=== PATIENT | female | born 1985 | race Caucasian/White ===

== ENCOUNTER 2016-07-30 16:12 | Emergency (ER) | payer SELFPAY ==
[~2016-07-30] VITALS: Ht 170.2 cm; Wt 63.5 kg
[2016-07-30] MEDS ORDERED: fentaNYL INJECTION 100 MCG/2 ML AMP IVP STA (16:30)
[2016-07-30] MEDS ORDERED: KETOROLAC 30 MG/ML VIAL IVP STA (16:30)
[2016-07-30] MEDS ORDERED: NS IV 1000 ML 1,000 ML IV ONE (16:30)
--- NOTE | 2016-07-30 16:36 | ED Abdominal Pain ---
General Chief Complaint: Abdominal/GI Problems Stated Complaint: ABD PAIN Source of Information: Patient Exam Limitations: No Limitations (NAZIA STANLEY MD) History of Present Illness Time Seen By Provider: 16:25 Initial Comments Here with complaint of right lower quadrant abdominal pain since yesterday. Does have history of polycystic ovarian syndrome. She states that she's not had pain like this before. Does admit to having lower abdominal pain and multiple CTs previously. Denies dysuria, vaginal discharge or diarrhea. Denies fever or chills currently. She is visiting here from [facility] and plans on being here for about a week visiting her sister. Timing/Duration: 1-2 Days Severity/Quality: Moderate, Aching, Sharp Location: RLQ Radiation: No Radiation Activities at Onset: None Modifying Factors: Worsens With Movement Associated Symptoms: No Back Pain, No Fever/Chills, No Nausea/Vomiting, No Weakness (NAZIA STANLEY MD) Allergies and Home Medications Allergies Coded Allergies: ceftriaxone (Verified Allergy, Unknown, RASH, 07/30/16) clindamycin (Verified Allergy, Unknown, 07/30/16) codeine (Verified Allergy, Unknown, 07/30/16) promethazine (Verified Allergy, Unknown, 07/30/16) Home Medications No Active Prescriptions or Reported Meds Review of Systems Constitutional: see HPINo chills, No fever EENTM: No Symptoms Reported Respiratory: No Symptoms ReportedDenies Cough, Denies Shortness of Air Cardiovascular: No Symptoms ReportedDenies Chest Pain Gastrointestinal: See HPI Abdominal PainDenies Diarrhea, Denies Nausea, Denies Vomiting Genitourinary: No Symptoms Reported Musculoskeletal: no symptoms reported Skin: no symptoms reported Psychiatric/Neurological: No Symptoms Reported (NAZIA STANLEY MD) All Other Systems Reviewed Negative Unless Noted: Yes (NAZIA STANLEY MD) Past Socdkdz-Xbjfxa-Naatuo Hx Patient Social History Alcohol Use: Occasionally Uses Recreational Drug Use: No Smoking Status: Current Everyday Smoker (she spoke with nephrectomy. Port applied and removed.) Recent Foreign Travel: No Contact w/Someone Who Travel: No (NAZIA STANLEY MD) Surgeries HX Surgeries: Yes (left nephrectomy) (NAZIA STANLEY MD) Respiratory Hx Respiratory Disorders: Yes Respiratory Disorders: Asthma (NAZIA STANLEY MD) Cardiovascular Hx Cardiac Disorders: No (NAZIA STANLEY MD) Neurological Hx Neurological Disorders: No (she spoke) (NAZIA STANLEY MD) Genitourinary Hx Genitourinary Disorders: Yes (Wilms tumor) (NAZIA STANLEY MD) Gastrointestinal Hx Gastrointestinal Disorders: No (NAZIA STANLEY MD) Musculoskeletal Hx Musculoskeletal Disorders: No (NAZIA STANLEY MD) Endocrine Hx Endocrine Disorders: No (NAZIA STANLEY MD) Cancer Hx Cancer: Yes Cancer: Kidney (Wilms tumor) (NAZIA STANLEY MD) Psychosocial Hx Psychiatric Problems: No (NAZIA STANLEY MD) Reviewed Nursing Assessment Reviewed/Agree w Nursing PMH: Yes (NAZIA STANLEY MD) Family Medical History Significant Family History: No Pertinent Family Hx (NAZIA STANLEY MD) Physical Exam Vital Signs VS - Last 72 Hours, by Label 07/30/16 07/30/16 07/30/16 07/30/16 16:22 17:03 17:08 17:37 Temp 99.2 99.2 99.2 99.2 Pulse 98 Resp 18 B/P 125/83 Pulse Ox 95 O2 Delivery Room Air 07/30/16 17:37 Temp 99.2 (HAJA SOLORZANO APRN) Vital Signs Capillary Refill : (NAZIA STANLEY MD) General Appearance: WD/WN no apparent distress HEENT: PERRL/EOMI pharynx normal Neck: full range of motion supple Respiratory: lungs clear normal breath sounds Cardiovascular: regular rate, rhythm no murmur Gastrointestinal: softNo guarding, No rebound, tenderness (right lower quadrant and suprapubic) Extremities: non-tender normal inspection Back: normal inspection no CVA tenderness no vertebral tenderness Neurologic/Psychiatric: alert oriented x 3 Skin: normal color warm/dry (NAZIA STANLEY MD) Progress/Results/Core Measures Results/Orders Lab Results Laboratory Tests Test 07/30/16 16:20 07/30/16 16:30 Range/Units Ur Tricyclic Antidepressants Screen NEGATIVE NEGATIVE Urine Amphetamines Screen NEGATIVE NEGATIVE Urine Bacteria FEW H /HPF Urine Barbiturates Screen NEGATIVE NEGATIVE Urine Benzodiazepines Screen NEGATIVE NEGATIVE Urine Bilirubin NEGATIVE NEGATIVE Urine Cannabinoids Screen NEGATIVE NEGATIVE Urine Casts NONE /LPF Urine Clarity CLEAR Urine Cocaine Screen NEGATIVE NEGATIVE Urine Color YELLOW Urine Crystals NONE /LPF Urine Culture Indicated YES Urine Glucose (UA) NEGATIVE NEGATIVE Urine Ketones NEGATIVE NEGATIVE Urine Leukocyte Esterase NEGATIVE NEGATIVE Urine Methadone Screen NEGATIVE NEGATIVE Urine Methamphetamines Screen NEGATIVE NEGATIVE Urine Mucus NEGATIVE /LPF Urine Nitrite POSITIVE H NEGATIVE Urine Opiates Screen NEGATIVE NEGATIVE Urine Oxycodone Screen NEGATIVE NEGATIVE Urine Phencyclidine Screen NEGATIVE NEGATIVE Urine Propoxyphene Screen NEGATIVE NEGATIVE Urine Protein NEGATIVE NEGATIVE Urine RBC NONE /HPF Urine RBC (Auto) NEGATIVE NEGATIVE Urine Specific [place] 1.015 L 1.016-1.022 Urine Squamous Epithelial Cells 10-25 H /HPF Urine Urobilinogen 1 NORMAL MG/DL Urine WBC RARE /HPF Urine pH 6.5 5-9 Alanine Aminotransferase (ALT/SGPT) 15 0-55 U/L Albumin 4.5 3.2-4.5 G/DL Alkaline Phosphatase 79 40-136 U/L Anion Gap 11 5-14 MMOL/L Aspartate Amino Transf (AST/SGOT) 19 5-34 U/L BUN/Creatinine Ratio 17 Basophils # (Auto) 0.1 0.0-0.1 10^3/uL Basophils (%) (Auto) 1 0-10 % Blood Urea Nitrogen 14 7-18 MG/DL C-Reactive Protein High Sensitivity 0.09 0.00-0.50 MG/DL Calcium Level 9.5 8.5-10.1 MG/DL Carbon Dioxide Level 22 21-32 MMOL/L Chloride Level 108 H 98-107 MMOL/L Creatinine 0.82 0.60-1.30 MG/DL Eosinophils # (Auto) 0.6 H 0.0-0.3 10^3/uL Eosinophils (%) (Auto) 5 0-10 % Estimat Glomerular Filtration Rate > 60 Glucose Level 98 70-105 MG/DL Hematocrit 41 35-52 % Hemoglobin 14.4 11.5-16.0 G/DL Lymphocytes # (Auto) 2.8 1.0-4.0 X 10^3 Lymphocytes (%) (Auto) 26 12-44 % Mean Corpuscular Hemoglobin 30 25-34 PG Mean Corpuscular Hemoglobin Concent 35 32-36 G/DL Mean Corpuscular Volume 86 80-99 FL Mean Platelet Volume 10.2 7.4-10.4 FL Monocytes # (Auto) 1.0 0.0-1.0 X 10^3 Monocytes (%) (Auto) 10 0-12 % Neutrophils # (Auto) 6.4 1.8-7.8 X 10^3 Neutrophils (%) (Auto) 59 42-75 % Platelet Count 353 130-400 10^3/uL Potassium Level 4.2 3.6-5.0 MMOL/L Red Blood Count 4.84 4.35-5.85 10^6/uL Red Cell Distribution Width 13.9 10.0-14.5 % Sodium Level 141 135-145 MMOL/L Total Bilirubin 0.3 0.1-1.0 MG/DL Total Protein 7.4 6.4-8.2 G/DL White Blood Count 10.8 4.3-11.0 10^3/uL (HAJA SOLORZANO APRN) Medications Given in ED Current Medications Medications Dose Ordered Sig/Ariel Route Start Time Stop Time Status Last Admin Dose Admin Iohexol 100 ml ONCE ONCE IV 07/30/16 17:45 07/30/16 17:46 DC 07/30/16 17:47 100 ML Sodium Chloride 100 ml ONCE ONCE IV 07/30/16 17:45 07/30/16 17:46 DC 07/30/16 17:47 80 ML Sodium Chloride 1,000 ml @ 0 mls/hr Q0M ONCE IV 07/30/16 16:30 07/30/16 16:33 DC 07/30/16 17:07 0 MLS/HR (HAJA SOLORZANO APRN) Vital Signs/I&O Vital Sign - Last 12Hours 07/30/16 07/30/16 07/30/16 07/30/16 16:22 17:03 17:08 17:37 Temp 99.2 99.2 99.2 99.2 Pulse 98 Resp 18 B/P 125/83 Pulse Ox 95 O2 Delivery Room Air 07/30/16 17:37 Temp 99.2 (HAJA SOLORZANO APRN) Progress Note : Progress Note Seen and evaluated. IV, labs, UA, UDS and UCG ordered. Ultrasound pelvis ordered. Fentanyl 50 g IV, Toradol 15 mg IV and Zofran 4 mg IV ordered. Normal saline 1 L bolus. Ultrasound does not show any concerning findings on the right side but does have left ovarian cyst. Question of UTI with nitrite- positive urine. In discussion with the patient, she says that she has old well urinary tract infections but never as had pain like this. She has had left nephrectomy. We did discuss risk and benefit of CT scan for rule out of appendicitis especially since patient has had multiple CTs. She states that she has never had pain like this before and this is concerning. CT abdomen pelvis ordered and patient understands risk of both contrast and radiation. She did receive 1 L of normal saline IV which will help flush contrast. (NAZIA STANLEY MD) Diagnostic Imaging Diagonstic Imaging: CT Comments NAME: RAAD MIGUEL [facility] REC#: [id number] PT STATUS: REG ER : 1985 PHYSICIAN: NAZIA STANLEY MD ADMIT DATE: 07/30/16/ER Draft Date of Exam:07/30/16 CT ABDOMEN/PELVIS W PROCEDURE: CT abdomen and pelvis with contrast. TECHNIQUE: Multiple contiguous axial images were obtained through the abdomen and pelvis after administration of intravenous contrast. INDICATION: Right lower quadrant abdominal pain for 2 days. CONTRAST: 100 mL Omnipaque 350 was given intravenously. COMPARISON STUDIES: Pelvic ultrasound from earlier today. FINDINGS: The lung bases are clear. Borderline hepatomegaly is present with the spleen upper normal in size. The left kidney is absent. This is probably acute as there is some air in the surgical bed. No intraperitoneal free air is present. The right kidney appears normal. There is normal appearance of the pancreas. The appendix and bowel loops appear unremarkable. The uterus is normal. Some small follicles are seen in both ovaries with more dominant 2 cm simple cyst of the left ovary. No hernias are present. There is no ascites. IMPRESSION: 1. Left nephrectomy is present with a small amount of free air in adjacent retroperitoneal compartment. No fluid collections are present. 2. There is borderline hepatosplenomegaly. 3. A 2 cm cyst is present in the left ovary. Dictated on workstation # [id number] Dict: 07/30/16 1808 Trans: 07/30/161817 SHANNA [id number] Interpreted by: LEANDRA MORILLO MD Electronically signed by: (HAJA SOLORZANO APRN) Departure Communication Progress Notes Patient states that she has taken penicillin and amoxicillin previously without difficulty. (HAJA SOLORZANO APRN) Impression Impression: Primary Impression: Urinary tract infection Qualified Code: N30.00 - Acute cystitis without hematuria Disposition: HOME, SELF-CARE Condition: Stable Departure-Patient Inst. Decision time for Depature: 18:27 (HAJA SOLORZANO APRN) Referrals: NO,LOCAL PHYSICIAN (PCP/Family) Primary Care Physician Patient Instructions: Urinary Tract Infection, Adult (DC) Add. Discharge Instructions: 1. Return to ER for any concerns 2. Follow-up with your doctor next week 3. Antibiotics as directed All discharge instructions reviewed with patient and/or family. Voiced understanding. Scripts Hydrocodone/Acetaminophen ([place] 5-325 Tablet)1 Each Tablet1 Each PO Q4H PRN PAIN #8 TAB Do not fill unless amoxicillin is also filled Prov:HAJA SOLORZANO APRN 07/30/16 Amoxicillin 500 Mg [id number] Mg PO TID #15 CAP Prov:HAJA SOLORZANO APRN 07/30/16 NAZIA STANLEY MD Jul 30, 2016 16:36 HAJA SOLORZANO APRN Jul 30, 2016 18:29
[2016-07-30 16:41] LABS: BASOPHILS # (AUTO) 0.1 10^3/uL (0.0-0.1); BASOPHILS % (AUTO) 1 % (0-10); EOSINOPHILS # (AUTO) 0.6 10^3/uL (0.0-0.3); EOSINOPHILS % (AUTO) 5 % (0-10); LYMPHOCYTES # (AUTO) 2.8 X 10^3 (1.0-4.0); LYMPHOCYTES % (AUTO) 26 % (12-44); MEAN CORPUSCULAR HEMOGLOBIN 30 PG (25-34); MEAN CORPUSCULAR HGB CONC 35 G/DL (32-36); MEAN CORPUSCULAR VOLUME 86 FL (80-99); MEAN PLATELET VOLUME 10.2 FL (7.4-10.4); MONOCYTES % (AUTO) 10 % (0-12); NEUTROPHILS # (AUTO) 6.4 X 10^3 (1.8-7.8); NEUTROPHILS % (AUTO) 59 % (42-75); PLATELET COUNT 353 10^3/uL (130-400); RED BLOOD COUNT 4.84 10^6/uL (4.35-5.85); RED CELL DISTRIBUTION WIDTH 13.9 % (10.0-14.5); WHITE BLOOD COUNT 10.8 10^3/uL (4.3-11.0)
[2016-07-30 16:42] LABS: BILIRUBIN,URINE NEGATIVE (NEGATIVE); KETONES,URINE NEGATIVE (NEGATIVE); LEUKOCYTE ESTERASE ,URINE NEGATIVE (NEGATIVE); NITRITE,URINE POSITIVE (NEGATIVE); PH,URINE 6.5 (5-9); PROTEIN,URINE NEGATIVE (NEGATIVE); UROBILINOGEN,URINE 1 MG/DL (NORMAL)
[2016-07-30 16:53] LABS: WBC,URINE RARE /HPF
[2016-07-30 17:10] LABS: ALANINE AMINOTRANSFERASE 15 U/L (0-55); ALBUMIN 4.5 G/DL (3.2-4.5); ANION GAP 11 MMOL/L (5-14); ASPARTATE AMINO TRANSFERASE 19 U/L (5-34); BILIRUBIN,TOTAL 0.3 MG/DL (0.1-1.0); BLOOD UREA NITROGEN 14 MG/DL (7-18); BUN/CREATININE RATIO 17; CALCIUM 9.5 MG/DL (8.5-10.1); CARBON DIOXIDE 22 MMOL/L (21-32); CHLORIDE 108 MMOL/L (98-107); CREATININE SERUM 0.82 MG/DL (0.60-1.30); GFR ESTIMATED > 60; GLUCOSE 98 MG/DL (70-105); POTASSIUM 4.2 MMOL/L (3.6-5.0); SODIUM 141 MMOL/L (135-145); TOTAL PROTEIN 7.4 G/DL (6.4-8.2); hs C REACTIVE PROTEIN 0.09 MG/DL (0.00-0.50)
[2016-07-30] MEDS ORDERED: NS 100 ML (IVPB) BAG IV ONE (17:45)
[2016-07-30] MEDS ORDERED: IOHEXOL 350 MG/ML 100 ML (OMNIPAQUE 350) VIAL IV ONE (17:45)
--- NOTE | 2016-07-30 17:56 | Diagnostic Imaging Report ---
INDICATION: 30-year-old female with right lower quadrant abdominal pain, history of PCOS. COMPARISON: None. FINDINGS: The uterus measures 6.7 cm x 4.3 cm x 2.9 cm. The endometrium measures 5 mm in thickness. There is otherwise uniform echotexture. There is normal flow within the arcuate veins of the uterus. Right ovary measures 3.7 cm x 3 cm x 3.3 cm, and the left ovary measures 5.4 cm x 4.6 cm x 2.4 cm. Both ovaries show normal flow by color Doppler and contain multiple follicles. There is a 2.6 cm x 2.1 cm x 1.8 cm cyst along the inferior pole of the left ovary. There are no abnormal adnexal masses, and there is no free fluid within the cul-de-sac IMPRESSION: 1. 2.6 cm x 2.1 cm x 1.8 cm left ovarian cyst. 2. Otherwise, unremarkable sonographic evaluation of the uterus and adnexa. Additional nonemergent findings as described above. Dictated by: Dictated on workstation # [id number]
--- NOTE | 2016-07-30 18:19 | Diagnostic Imaging Report ---
PROCEDURE: CT abdomen and pelvis with contrast. TECHNIQUE: Multiple contiguous axial images were obtained through the abdomen and pelvis after administration of intravenous contrast. INDICATION: Right lower quadrant abdominal pain for 2 days. CONTRAST: 100 mL Omnipaque 350 was given intravenously. COMPARISON STUDIES: Pelvic ultrasound from earlier today. FINDINGS: The lung bases are clear. Borderline hepatomegaly is present with the spleen upper normal in size. The left kidney is absent. This is probably acute as there is some air in the surgical bed. No intraperitoneal free air is present. The right kidney appears normal. There is normal appearance of the pancreas. The appendix and bowel loops appear unremarkable. The uterus is normal. Some small follicles are seen in both ovaries with more dominant 2 cm simple cyst of the left ovary. No hernias are present. There is no ascites. IMPRESSION: 1. Left nephrectomy is present with a small amount of free air in adjacent retroperitoneal compartment. No fluid collections are present. 2. There is borderline hepatosplenomegaly. 3. A 2 cm cyst is present in the left ovary. Dictated by: Dictated on workstation # [id number]
[2016-07-30] MEDS ORDERED: HYDR-757 PO (18:28)
[2016-07-30] MEDS ORDERED: AMOX500C2 PO (18:28)
[2016-07-30 18:45] VITALS: BP 125/83
== END 2016-07-30 18:45 | disposition home or self-care (01) ==
LOC: ER 16:15
DX: N39.0 Urinary tract infection, site not specified (principal); N83.202 Unspecified ovarian cyst, left side; F17.210 Nicotine dependence, cigarettes, uncomplicated; Z90.5 Acquired absence of kidney
CPT/HCPCS: 36415; 74177; 76830; 76856; 80053; 80306; 81000; 84703; 85025; 86141; 87077; 87088; 87186; 96361; 96374; 96375